=== PATIENT | female | born 1990 | race Caucasian/White ===

== ENCOUNTER 2019-06-15 04:14 | Emergency (ER) | payer SELFPAY ==
--- NOTE | 2019-06-15 06:48 | ER Document Report ---
ED General - General Chief Complaint: Arm Problem Stated Complaint: ARM SWELLING Time Seen by Provider: 06/15/19 06:29 TRAVEL OUTSIDE OF THE [place] IN LAST 30 DAYS: No - HPI Notes: 28-year-old female who presents with left forearmPain and swelling. She describes a "tired feeling" in her left mid forearm a couple of days ago that now has become more of a lump and painful. Throbbing, worse with palpation. Last week she had an extensive tattoo placed on her forearm. No fever. No drainage. Moderate intensity, gradual onset, nonradiating. Worse with motion. No other modifying factors, no other associated symptoms, no other provocative or palliative factors. - Related Data Allergies/Adverse Reactions: No Known Allergies Allergy (Verified 06/15/19 04:25) Past Medical History - Social History Smoking Status: Never Smoker Chew tobacco use (# tins/day): No Frequency of alcohol use: None Drug Abuse: None Family History: Reviewed & Not Pertinent Patient has suicidal ideation: No Patient has homicidal ideation: No - Medical History Notes: Denies any history of MRSA Review of Systems - Review of Systems Notes: Review of systems as in the history of present illness, otherwise negative x 10 systems. Physical Exam - Vital signs Vitals: Temp Pulse Resp BP Pulse Ox 97.8 F 58 L 17 117/79 100 06/15/19 04:26 06/15/19 04:26 06/15/19 04:26 06/15/19 04:26 06/15/19 04:26 - Notes Notes: General: Well devloped, no acute distress. HEENT: Normocephalic, atraumatic. Pupils equal round reactive to light. Mucosa moist. No JVD. Chest: No trauma, normal excursion. Respiratory: Good air exchange, normal excursion. Cardiac: Regular rhythm Abdomen: Soft, benign. Nondistended. Back: No asymmetry or gross abnormality. Motor: Grossly normal power and tone. Neurologic: Alert, nonfocal. Vascular: Well perfused Skin: No petechiae or purpura Extremities: Left forearm in the mid forearm position has a approximately marble shaped irregular area of induration without significant erythema. No fluctuance. Fresh tattoos noted. Course - Re-evaluation Re-evalutation: 06/15/19 06:46 Appearing female the after mentioned symptoms. May be an early cellulitis, thrombophlebitis or superficial vein thrombosis. No evidence of abscess. Will treat empirically with Keflex, hot soaks, close outpatient follow-up. - Vital Signs Vital signs: Temp Pulse Resp BP Pulse Ox 97.8 F 58 L 17 117/79 100 06/15/19 04:26 06/15/19 04:26 06/15/19 04:26 06/15/19 04:26 06/15/19 04:26 Discharge - Discharge Clinical Impression: Cellulitis Qualifiers: Site of cellulitis: unspecified site Qualified Code(s): L03.90 - Cellulitis, unspecified Condition: Good Disposition: HOME, SELF-CARE Instructions: Cellulitis ([facility]) Additional Instructions: See her primary care doctor in 24 to 48 hours Prescriptions: Cephalexin Monohydrate [Keflex 500 mg Capsule] 500 mg PO Q6H 7 Days #28 capsule
--- NOTE | 2019-06-15 06:52 | RADIOLOGY REPORT (SQ) ---
EXAM: X-ray forearm two views CLINICAL DATA: 28-year-old female with bone tenderness along anterior aspect of distal forearm; new tattoo several days ago TECHNICAL DATA: Two x-ray views of the left forearm were performed on 06/15/2019 at 6:17 AM. COMPARISONS: None FINDINGS: There is no evidence of fracture or dislocation. There is no significant arthritis or degenerative change. No focal lytic or sclerotic bone lesions are seen. Bone mineralization is normal. There is mild soft tissue swelling along the volar aspect of the mid to distal left forearm IMPRESSION: No evidence of acute osseous injury involving the left forearm. Mild soft tissue swelling along the volar aspect of the mid to distal left forearm.
[2019-06-15 07:37] VITALS: BP 120/1
== END 2019-06-15 07:35 | disposition home or self-care (01) ==
LOC: ER 04:14
DX: L03.90 Cellulitis, unspecified (principal); M79.89 Other specified soft tissue disorders; M79.632 Pain in left forearm